=== PATIENT | female | born 1990 | race Caucasian/White ===

== ENCOUNTER 2020-01-01 16:43 | Emergency (ER) | payer OTHER ==
[~2020-01-01] VITALS: Ht 152.4 cm; Wt 74.4 kg
[2020-01-01 17:08] VITALS: Ht 152.4 cm; Wt 74.4 kg
[2020-01-01 20:35] VITALS: BP 105/68
== END 2020-01-01 20:35 | disposition home or self-care (01) ==
LOC: ED 16:43
DX: N89.8 Other specified noninflammatory disorders of vagina (principal); R10.2 Pelvic and perineal pain; R10.30 Lower abdominal pain, unspecified